=== PATIENT | male | born 1950 | race Caucasian/White ===

== ENCOUNTER 2016-10-19 19:01 | Emergency (ER) | payer MEDICARE, OTHER ==
--- NOTE | 2016-10-19 20:39 | RAD ---
INDICATION: Gross hematuria. Urinary urgency. LEFT flank pain at site of previous kidney surgery. Rectal bleeding. COMPARISON: November 16, [address] TECHNIQUE: Multidetector CT images were obtained from the lung bases to the ischial tuberosities. Evaluation of the viscera is limited without IV contrast. Multiplanar reformation. REPORT: Unchanged 2 mm subpleural nodule at the anterior basal segment of the RIGHT lower lobe compared with the 2012 exam without concern. Unremarkable unenhanced liver, gallbladder, pancreas, spleen. Negative for CT abnormality of the upper GI, small bowel, infra cecal appendix in the anterior RIGHT lower quadrant, and colon. Moderate stool throughout the redundant sigmoid colon and rectum. Negative for ascites, free air. Small fat-containing umbilical hernia without significant inflammatory change. Normal adrenal glands. Postsurgical scarring and calcification at the level of the lesion resection at the posterior midpole of the LEFT kidney. Nonobstructing 3 mm stone inferior pole LEFT kidney. No suspicious focal renal lesions. Negative for hydronephrosis. Unremarkable nondilated ureters. Phleboliths noted along the course of the LEFT ureter. Hyperdense 3.2 cm AP by 4.6 cm transverse by 2.5 cm cephalocaudal lesion in the dependent aspect of the urinary bladder most suspicious for blood products given history of gross hematuria. Moderately distended urinary bladder without definitive visualized additional focal lesion. Enlarged prostate. No gross abnormality of the seminal vesicles. Negative for lymphadenopathy. Normal diameter abdominal aorta and common iliac arteries with minimal calcific plaque of the aorta. Physiologic distention of the IVC. Multilevel degenerative arthropathy. Bone density appears decreased throughout. No suspicious focal osseous lesions or fractures evident. IMPRESSION: 1. Postsurgical scarring and calcification at the level of the lesion resection at the posterior midpole of the LEFT kidney. Nonobstructing 3 mm stone inferior pole LEFT kidney. No suspicious focal renal lesions evident however assessment is limited with noncontrast CT. 2. Suggestion of a large blood clot in the dependent portion of the moderately distended urinary bladder. Assessment for a bladder mass lesion is limited without contrast enhancement including pyelographic phase series. 3. Prostatomegaly.
[2016-10-19 21:04] LABS: Hematocrit 40 % (42-52); Hemoglobin 13.2 g/dl (14.0-18.0); Mean Corpuscular HGB Conc 33 g/dl (31-36); Mean Corpuscular Hemoglobin 29 pg (27-31); Mean Corpuscular Volume 87 fL (80-94); Mean Platelet Volume 8 um3 (7.4-10.4); Red Blood Count 4.57 10^6/ul (4.0-5.4); Red Cell Distribution Width 13 % (10.5-15)
[2016-10-19 21:20] LABS: Albumin 4.2 g/dL (3.2-5.2); BUN/Creatinine Ratio 13.2 (8-20); C Reactive Protein 29.32 mg/L (< 5.00); Calcium 9.4 mg/dL (8.6-10.3); EGFR African American 90.2 (>60); EGFR Non-African American 70.1 (>60); Globulin 3.1 g/dL (2-4); Potassium 4.2 mmol/L (3.5-5.0); Total Bilirubin 0.7 mg/dL (0.2-1.0); Total Protein 7.3 g/dL (6.4-8.9)
[2016-10-19 21:22] LABS: Urine Bacteria Absent (Absent); Urine Bilirubin Negative (Negative); Urine Glucose Negative (Negative); Urine Nitrite Negative (Negative)
[2016-10-19] MEDS ORDERED: Sulfamethox/Trimethoprim DS 800/160* TAB PO ONE ×2 (21:43)
[2016-10-19] MEDS ORDERED: Tamsulosin CAP* 0.4 MG PO ONE (21:48)
--- NOTE | 2016-10-19 21:52 | ED ---
Srini Alonso Claudia, scribed for Vinicio Casey MD on 10/19/16 at 2003 . GI/ HPI - HPI Summary HPI Summary: 66 year old male presents to the ED with hematuria and left flank/suprapubic ache since this afternoon. Pt notes sudden onset of Sx. Pt notes similar Sx to after he had left kidney surgery for the removal of a growth. Pt notes he tried to urinate this pm and he passed several blood clots and then was unable to continue producing urine. Pt noemi being on any blood thinner. Pt notes nothing seems to alleviate or aggravate his Sx. Pt denies any fever or chills. - History of Current Complaint Chief Complaint: EDGIBleed Time Seen by Provider: 10/19/16 19:33 Stated Complaint: RECTAL BLEEDING Hx Obtained From: Patient Onset/Duration: Started Hours Ago, Still Present Timing: Constant Pain Intensity: 3 Pain Characteristics: Aching Associated Signs and Symptoms: Positive: Hematuria, Other: - left flank pain. Negative: Fever, Chills - Allergy/Home Medications Allergies/Adverse Reactions: Allergies Allergy/AdvReac Type Severity Reaction Status Date / Time Penicillins Allergy Severe anaphylaxis Verified 02/23/13 01:19 Codeine AdvReac Severe See Comment Verified 02/23/13 01:19 Eggs or Egg-derived Products AdvReac Intermediate Vomiting Verified 02/23/13 01: 19 PMH/Surg Hx/FS Hx/Imm Hx Previously Healthy: Yes Endocrine/Hematology History: Denies: Hx Diabetes Cardiovascular History: Reports: Other Cardiovascular Problems/Disorders - SWELLING FROM THE KNEES [id number] History: Reports: Hx Renal Disease - 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 , Other Problems/Disorders - 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 Hx Anesthesia Reactions: No Infectious Disease History: No Infectious Disease History: Denies: Traveled Outside the [place] in Last 30 Days - Family History Family History: NO FHx of Malignant Hyperthermia - Social History Occupation: Disabled Lives: With Family Alcohol Use: None Substance Use Type: Reports: None Review of Systems Constitutional: Negative Negative: Fever, Chills Eyes: Negative ENT: Negative Cardiovascular: Negative Respiratory: Negative Gastrointestinal: Negative Positive: flank pain, hematuria Musculoskeletal: Negative Skin: Negative Neurological: Negative Psychological: Normal All Other Systems Reviewed And Are Negative: Yes Physical Exam Triage Information Reviewed: Yes Vital Signs On Initial Exam: Initial Vitals Temp Pulse Resp BP Pulse Ox 99.3 F 70 16 165/91 100 10/19/16 19:16 10/19/16 19:16 10/19/16 19:16 10/19/16 19:16 10/19/16 19:16 Vital Signs Reviewed: Yes Appearance: Positive: Well-Appearing, No Pain Distress Skin: Positive: Warm, Skin Color Reflects Adequate Perfusion, Dry Head/Face: Positive: Normal Head/Face Inspection Eyes: Positive: EOMI, MAULIK ENT: Positive: Normal ENT inspection Neck: Positive: Supple, Nontender Respiratory/Lung Sounds: Positive: Clear to Auscultation, Breath Sounds Present Cardiovascular: Positive: RRR Abdomen Description: Positive: Soft. Negative: Nontender - suprapubic tenderness Musculoskeletal: Positive: Normal, Strength/ROM Intact Neurological: Positive: Normal, Sensory/Motor Intact, Alert, Oriented to Person Place, Time Psychiatric: Positive: Affect/Mood Appropriate Diagnostics - Vital Signs Vital Signs Temp Pulse Resp BP Pulse Ox 10/19/16 19:16 99.3 F 70 16 165/91 100 - Laboratory Lab Results: Lab Results 10/19/16 10/19/16 10/19/16 Range/Units 20:40 20:40 20:40 WBC 8.0 (3.5-10.8) 10^3/ul RBC 4.57 (4.0-5.4) 10^6/ul Hgb 13.2 L (14.0-18.0) g/dl Hct 40 L (42-52) % MCV 87 (80-94) fL MCH 29 (27-31) pg MCHC 33 (31-36) g/dl RDW 13 (10.5-15) % Plt Count 186 (150-450) 10^3/ul MPV 8 (7.4-10.4) um3 Neut % (Auto) 73.3 (38-83) % Lymph % (Auto) 17.2 L (25-47) % [place] % (Auto) 7.8 (1-9) % Eos % (Auto) 0.9 (0-6) % Baso % (Auto) 0.8 (0-2) % Absolute Neuts (auto) 5.9 (1.5-7.7) 10^3/ul Absolute Lymphs (auto) 1.4 (1.0-4.8) 10^3/ul Absolute Monos (auto) 0.6 (0-0.8) 10^3/ul Absolute Eos (auto) 0.1 (0-0.6) 10^3/ul Absolute Basos (auto) 0.1 (0-0.2) 10^3/ul Absolute Nucleated RBC 0 10^3/ul Nucleated RBC % 0 INR (Anticoag Therapy) 1.06 (0.89-1.11) APTT 32.4 (26.0-36.3) seconds Sodium (133-145) mmol/L Potassium (3.5-5.0) mmol/L Chloride (101-111) mmol/L Carbon Dioxide (22-32) mmol/L Anion Gap (2-11) mmol/L BUN (6-24) mg/dL Creatinine (0.67-1.17) mg/dL Est GFR ( Amer) (>60) Est GFR (Non-Af Amer) (>60) BUN/Creatinine Ratio (8-20) Glucose (70-100) mg/dL Lactic Acid (0.5-2.0) mmol/L Calcium (8.6-10.3) mg/dL Total Bilirubin (0.2-1.0) mg/dL AST (13-39) U/L ALT (7-52) U/L Alkaline Phosphatase (34-104) U/L C-Reactive Protein (< 5.00) mg/L Total Protein (6.4-8.9) g/dL Albumin (3.2-5.2) g/dL Globulin (2-4) g/dL Albumin/Globulin Ratio (1-3) Lipase (11.0-82.0) U/L Urine Color Red A Urine Appearance Cloudy Urine pH 6.0 (5-9) Ur Specific [place] 1.013 (1.010-1.030) Urine Protein 2+(100 mg/dl) H (Negative) Urine Ketones Negative (Negative) Urine Blood 3+ H (Negative) Urine Nitrate Negative (Negative) Urine Bilirubin Negative (Negative) Urine Urobilinogen Negative (Negative) Ur Leukocyte Esterase Trace H (Negative) Urine WBC (Auto) 3+(>20/hpf) H (Absent) Urine RBC (Auto) 3+(>10/hpf) H (Absent) Urine Bacteria Absent (Absent) Urine Glucose Negative (Negative) Urine Ascorbic Acid * H (Negative) 10/19/16 10/19/16 Range/Units 20:40 20:40 WBC (3.5-10.8) 10^3/ul RBC (4.0-5.4) 10^6/ul Hgb (14.0-18.0) g/dl Hct (42-52) % MCV (80-94) fL MCH (27-31) pg MCHC (31-36) g/dl RDW (10.5-15) % Plt Count (150-450) 10^3/ul MPV (7.4-10.4) um3 Neut % (Auto) (38-83) % Lymph % (Auto) (25-47) % [place] % (Auto) (1-9) % Eos % (Auto) (0-6) % Baso % (Auto) (0-2) % Absolute Neuts (auto) (1.5-7.7) 10^3/ul Absolute Lymphs (auto) (1.0-4.8) 10^3/ul Absolute Monos (auto) (0-0.8) 10^3/ul Absolute Eos (auto) (0-0.6) 10^3/ul Absolute Basos (auto) (0-0.2) 10^3/ul Absolute Nucleated RBC 10^3/ul Nucleated RBC % INR (Anticoag Therapy) (0.89-1.11) APTT (26.0-36.3) seconds Sodium 137 (133-145) mmol/L Potassium 4.2 (3.5-5.0) mmol/L Chloride 104 (101-111) mmol/L Carbon Dioxide 28 (22-32) mmol/L Anion Gap 5 (2-11) mmol/L BUN 14 (6-24) mg/dL Creatinine 1.06 (0.67-1.17) mg/dL Est GFR ( Amer) 90.2 (>60) Est GFR (Non-Af Amer) 70.1 (>60) BUN/Creatinine Ratio 13.2 (8-20) Glucose 102 H (70-100) mg/dL Lactic Acid 0.6 (0.5-2.0) mmol/L Calcium 9.4 (8.6-10.3) mg/dL Total Bilirubin 0.70 (0.2-1.0) mg/dL AST 17 (13-39) U/L ALT 14 (7-52) U/L Alkaline Phosphatase 72 (34-104) U/L C-Reactive Protein 29.32 H (< 5.00) mg/L Total Protein 7.3 (6.4-8.9) g/dL Albumin 4.2 (3.2-5.2) g/dL Globulin 3.1 (2-4) g/dL Albumin/Globulin Ratio 1.4 (1-3) Lipase 59 (11.0-82.0) U/L Urine Color Urine Appearance Urine pH (5-9) Ur Specific [place] (1.010-1.030) Urine Protein (Negative) Urine Ketones (Negative) Urine Blood (Negative) Urine Nitrate (Negative) Urine Bilirubin (Negative) Urine Urobilinogen (Negative) Ur Leukocyte Esterase (Negative) Urine WBC (Auto) (Absent) Urine RBC (Auto) (Absent) Urine Bacteria (Absent) Urine Glucose (Negative) Urine Ascorbic Acid (Negative) Result Diagrams: 10/19/16 20:40 10/19/16 20:40 Lab Statement: Any lab studies that have been ordered have been reviewed, and results considered in the medical decision making process. - CT ABD/PELVIS CT Interpretation: Positive (See Comments) - 1. Postsurgical scarring and calcification at the level of the lesion resection at the posterior midpole of the LEFT kidney. Nonobstructing 3 mm stone inferior pole LEFT kidney. No suspicious focal renal lesions evident however assessment is limited with noncontrast CT. 2. Suggestion of a large blood clot in the dependent portion of the moderately distended urinary bladder. Assessment for a bladder mass lesion is limited without contrast enhancement including pyelographic phase series. 3. Prostatomegaly. CT Interpretation Completed By: Radiologist Re-Evaluation - Re-Evaluation 1 Re-Evaluation Time: 21:36 Comment: Pt is updated on results of lab analysis and CT ABD/PELVIS GIGU Course/Dx - Course Assessment/Plan: DISCUSSED RESULTS WITH PATIENT. DX FLOMAX AND BACTRIM. START GUZMAN WITH LEG BAG. F/U UROLOGY. DISCHARGE HOME STABLE. - Diagnoses Provider Diagnoses: Hematuria, Urinary retention Discharge - Discharge Plan Condition: Stable Disposition: HOME Prescriptions: Sulfamethox/Trimethoprim DS* [Bactrim DS 800/160 TAB*] 1 tab PO BID #18 tab Tamsulosin CAP* [Flomax CAP*] 0.4 mg PO DAILY #10 cap Patient Education Materials: Urinary Retention in Men (ED), Guzman Catheter Placement and Care (ED), Hematuria (ED), Urinary Leg Bag (GEN) Referrals: [facility] [Provider Group] Louie Enriquez MD [Primary Care Provider] - Francisco Yu MD [Medical Doctor] - Lucio Ayala MD [Medical Doctor] - Additional Instructions: FOLLOW UP WITH UROLOGY. RETURN TO THE EMERGENCY DEPARTMENT FOR ANY WORSENING OF YOUR CONDITION; PAIN, FEVER, YOU FEEL ILL OR QUESTIONS OR CONCERNS. The documentation as recorded by the Srini rust Claudia accurately reflects the service I personally performed and the decisions made by me, Vinicio Casey MD.
[2016-10-19 23:00] VITALS: BP 124/76
== END 2016-10-19 22:59 | disposition home or self-care (01) ==
LOC: ED 19:01
DX: R31.9 Hematuria, unspecified (principal); R33.9 Retention of urine, unspecified; G43.909 Migraine, unspecified, not intractable, without status migrainosus; Z88.5 Allergy status to narcotic agent
CPT/HCPCS: 36415; 74176; 80053; 81003; 81015; 83605; 83690; 85025; 85610; 85730; 86140; 87086; 99283; A9270-GY

== ENCOUNTER 2016-10-21 13:11 | Day surgery (SDC) | payer MEDICARE, OTHER ==
[~2016-10-21 13:11] MED LIST: Buffered Lidocaine 1% SYR 3ML* 3 ML/SYR SYRINGE INTRADERM ONE; Dexamethasone IV* 4 MG/ML 1 ML (4 MG) ONE; Famotidine IV* 10 MG/ML 2 ML (20 mg) IV ONE; Famotidine IV* 10 MG/ML 2 ML (20 mg) ONE; Furosemide IV* 10 MG/ML 2 ML VIAL (20 MG) ONE; Iohexol 180 (CONTRAST) 10 ML SDV IV ONE; KETAMINE HCL* 50 MG/ML 10 ML VIAL ONE; Levofloxacin 500 MG IVPREMIX(* 500 MG/100 ML BAG IVPB ONE; Lidocaine 2% PF * 5 ML VIAL ONE; Metoprolol Tartrate IV* 1 MG/ML 5 ML VIAL ONE; Midazolam* 1 MG/ML 5 ML VIAL (5 MG) ONE; Morphine INJ* 2 MG/ML 1 ML CARPUJECT IV PRN; Ondansetron INJ* 2 MG/ML VIAL ONE; PROCHLORPERAZINE INJ 5 MG/ML 2 ML VIAL IV PRN; Propofol* 10 MG/ML 20 ML BTL IV PUSH ONE; fentaNYL* 50 MCG/ML 2 ML VIAL (100 MCG VIAL) IV PRN; fentaNYL* 50 MCG/ML 2 ML VIAL (100 MCG VIAL) ONE; oxyCODONE/Acetamin 5/325 MG* TAB PO PRN
[2016-10-21] MEDS ORDERED: oxyCODONE/Acetamin 5/325 MG* TAB ONE (14:15)
--- NOTE | 2016-10-21 14:42 | RAD ---
INDICATION: LEFT ureteral stent placement. COMPARISON: October 21, 2016 CT urogram. TECHNIQUE: 5 seconds fluoroscopy. FINDINGS: LEFT retrograde pyelogram is negative for significant calyceal blunting LEFT ureteral stent placed. IMPRESSION: Procedural fluoroscopy. CPT II Codes: 6045F
[2016-10-21 14:54] VITALS: BP 171/91
--- NOTE | 2016-10-22 11:41 | OP ---
DATE OF OPERATION: 10/21/16 - [facility] DATE OF : [birth year] - AGE/SEX: 66 years, male SURGEON: Lucio Ayala MD ANESTHESIOLOGIST: Dr. Pettit. ANESTHESIA: General. PRE-OP DIAGNOSES: 1. Gross hematuria. 2. Clot retention. 3. Prostate enlargement. 4. Bladder lesion. POST-OP DIAGNOSES: 1. Gross hematuria. 2. Clot retention. 3. Prostate enlargement. 4. Bladder lesion. OPERATIVE PROCEDURE: 1. Cystoscopy, clot evacuation, left retrograde pyelogram, and left stent insertion. 2. Bladder biopsy and fulguration. 3. Transurethral resection, bladder-prostate lesion. COMPLICATIONS: None. POSTOPERATIVE CONDITION: Stable. SPECIMENS: 1. Biopsies, posterior bladder wall. 2. Biopsies, bladder neck-prostatic urethra. OPERATIVE FINDINGS: 1. Markedly enlarged vascular prostate with bleeding noted from right side of median lobe of prostate. 2. Irregular highly vascular area between bladder neck and trigone (probably related to BPH, less likely neoplasm). 3. Additional areas of irregular, raised mucosa posterior bladder wall, left side. INDICATIONS: Vinicio Calzada is a 66-year-old gentleman who was evaluated for gross hematuria and clot retention. DESCRIPTION OF PROCEDURE: After induction of general anesthesia, the patient was placed in dorsal lithotomy position. The previously placed Jordan catheter was removed. Cystoscopy revealed normal-appearing urethra. The prostate was significantly enlarged and vascular with some active bleeding noted from the median lobe on the right side. The bladder was examined. Several clots were noted in the bladder, which were removed using the Ellik evacuator. One of these was fairly large. The bladder was then carefully examined. The floor of the bladder between the bladder neck and trigone, the mucosa was hyperemic with lots of large blood vessels and slightly irregular mucosa. The right orifice was clear of this area, but the left orifice was fairly close and because of that, I elected to proceed with temporary left stent insertion. Left retrograde pyelogram was performed, which was unremarkable and a 6-[place]ine[place] stent was introduced without difficulty. There was an additional area in the posterior bladder wall where the mucosa was raised, hyperemic, and irregular. Part of this could be due to the Jordan catheter, but this was a little bit more lateral than usually seen with irritation due to the Jordan catheter. Youth Counselor biopsies were obtained from this area and sent for histopathology. Next, a resectoscope was introduced and the abnormal-appearing tissue between the trigone and bladder neck was completely resected down to muscle and sent for histopathology. Hemostasis was secured using the coagulating current, and as expected, this area was highly vascular. A 24-Guinean Jordan was placed at the end of the procedure and connected to a drainage bag. The patient tolerated the procedure satisfactorily and was transferred back to the recovery area in stable condition. CC: Dr. Sebastián Carvalho * [id number]/[facility] #: [id number]
== END 2016-10-21 15:00 | disposition home or self-care (01) ==
LOC: OR 13:11
PROVIDERS: ATTEND Urology
DX: N32.89 Other specified disorders of bladder (principal); R31.0 Gross hematuria; Z87.891 Personal history of nicotine dependence
CPT/HCPCS: 74420; 88305; A9270-GY; C1876; J1100; J1940; J1956; J2250; J2405; J2704; J3010; J3490